=== PATIENT | male | born 1995 | race Caucasian/White ===

== ENCOUNTER 2021-03-17 00:20 | Emergency (ER) | payer BC, SELFPAY ==
--- NOTE | ~2021-03-17 | CT_ITS ---
EXAMINATION: CT abdomen pelvis w con DATE: 03/17/2021 01:58 INDICATION: Left-sided gluteal abscess versus cellulitis TECHNIQUE: Computed tomography (CT) of the abdomen and pelvis was performed with 100 mL Omnipaque-350 intravenous contrast. Automated exposure control and iterative reconstruction technique were employe d. The dose-length product was 802.44 mGy-cm. COMPARISON: None FINDINGS: Lung bases are clear. Heart size is normal. No pericardial or pleural effusion. Mild bilateral gyneco mastia. Liver, gallbladder, spleen, pancreas, bilateral adrenal glands and kidneys are normal. Bladde r is normal. There is mild scattered colonic diverticulosis without adjacent inflammatory change to s uggest diverticulitis. Small bowel and appendix are normal. Postoperative change of prior right ingui nal hernia mesh repair. No free intraperitoneal gas or fluid. No pathologically enlarged abdominal or pelvic lymphadenopathy. 2.1 x 1.3 x 0.9 cm rim-enhancing fluid collection with mild surrounding from trace stranding in the subcutaneous fat dorsal to the coccyx positioned slightly to the left of midl ine at the zahra of the gluteal cleft. The abscess appears separate from the underlying coccyx by a t hin intervening fat plane. No evident cortical erosion to suggest osteomyelitis. IMPRESSION: 1. 2.1 x 1.3 x 0.9 cm subcutaneous abscess along the gluteal cleft dorsal to the coccyx. Reviewed, dictated and finalized at location A. IMPRESSION: 1. 2.1 x 1.3 x 0.9 cm subcutaneous abscess along the gluteal cleft dorsal to th e coccyx.
[2021-03-17 00:23] VITALS: BP 153/96; PULSE 112; RESP 20; TEMP 36.9; O2SAT 95
[2021-03-17] MEDS: SODIUM CHLORIDE 0.9% IV 1,000 ML 999 ML IV CONT (01:15)
[2021-03-17] MEDS: CLINDAMYCIN 600 MG/D5W 50 ML 600 MG/50 ML PIGGYBACK 100 MG IVPB (01:18)
[2021-03-17 01:23] LABS: Basophils Percent Auto 0.3 % (0.2-1.2); Eosinophils Absolute Auto 0.1 K/mm3 (0-0.3); Hematocrit 47.1 % (42.0-52.0); Hemoglobin 16.7 g/dL (14.0-18.0); Immature Granulocyte Absolute 0.02 K/mm3 (0.00-0.031); Immature Granulocyte Percent A 0.2 % (0-0.5); Lymphocytes Absolute Auto 1.82 K/mm3 (0.9-3.2); Lymphocytes Percent Auto 15.3 % (18.3-44.2); Mean Corpuscular HGB Conc 35.5 g/dl (32-36); Mean Corpuscular Hemoglobin 31.8 pg (26-34); Mean Corpuscular Volume 89.7 fl (80-100); Mean Platelet Volume 11.6 fl (7.4-10.4); Monocytes Absolute Auto 1.2 K/mm3 (0.1-0.6); Monocytes Percent Auto 9.6 % (2.6-8.5); Neutrophils Absolute Auto 8.8 K/mm3 (1.3-6.7); Neutrophils Percent Auto 73.6 % (45.5-73.1); Platelet Count Result 216 k/mm3 (150-375); Red Blood Count 5.25 M/mm3 (4.6-6.20); Red Cell Distribution Width 12.4 % (11.5-14.5); White Blood Count 11.9 K/mm3 (4.5-10.0)
[2021-03-17 01:24] VITALS: BP 111/75; PULSE 87; RESP 12; O2SAT 95
--- NOTE | 2021-03-17 01:25 | PC.NURSE ---
Pt. states he does not want pain medication at this time.
[2021-03-17 01:42] LABS: Alanine Aminotransferase 31 U/L (4-50); Albumin Level 4.9 g/dL (3.5-5.1); Alkaline Phosphatase 61 U/L (38-126); Anion Gap 9 mmol/L (8-16); Aspartate Amino Transferase 35 U/L (17-59); Bilirubin,Total 0.5 mg/dL (0.2-1.3); Blood Urea Nitrogen 19 mg/dL (9-20); Calcium 9.7 mg/dL (8.4-10.2); Carbon Dioxide 26 mmol/L (22-30); Chloride 104 mmol/L (98-107); Estimated CRCL calculation 120 ml/min; Estimated Glomerular Filt Rate > 60; Glucose 110 mg/dL (75-110); Potassium 3.9 mmol/L (3.4-5.0); Sodium 139 mmol/L (137-145)
[2021-03-17 01:43] LABS: Lactic Acid Reflex 0.7 mmol/L (0.7-2.1)
--- NOTE | 2021-03-17 01:52 | ED.GENADULT ---
HPI - General Adult General Chief complaint: Back Pain/Injury Stated complaint: back pain Time Seen by Provider: 03/17/21 00:40 History of Present Illness HPI narrative: Patient is a 26-year-old gentleman who presents the emergency department with chief complaint of pain in the gluteal region. Patient states that he has noticed there is been some swelling and discomfort in the fold of his rectum. Patient states that there is swelling and tenderness to palpation. Patient states that has had no fevers reports that it hurts whenever he tries to sit down patient denies drainage denies fluctuance. Related Data Allergies Allergy/AdvReac Type Severity Reaction Status Date / Time ibuprofen Allergy Unknown Swelling Verified 03/17/21 01:23 of Lip/Tongue/Throat Review of Systems Review of Systems: Narrative: A 10 system review of systems was completed on the patient and is negative except for what is stated in the HPI. Nursing and ancillary documentation was reviewed. Exam Narrative: Exam Narrative: GENERAL: Well-appearing, well-nourished, and in no acute distress. HEAD: Normocephalic, atraumatic. EYES: PERRLA and EOMI. ENT: Nares clear, no rhinorrhea or epistaxis. Mucous membranes moist. NECK: Supple. CHEST: Clear to auscultation. No respiratory distress. HEART: Regular rate and rhythm. No murmur heard. Normal peripheral pulses. ABDOMEN: Soft, nontender, nondistended, normal active bowel sounds. : There is tenderness and erythema of the left gluteal fold EXTREMITIES: Normal range of motion. No edema. SKIN: Warm, dry, no rash. NEURO: No focal deficits. Alert and oriented x3. PSYCH: Normal mood and affect. Course Course Emergency Course: CT scan shows no evidence of cellulitis in the gluteal fold Vital Signs Vital signs: Vital Signs Temperature 36.9 C 03/17/21 00:23 Pulse Rate 112 H 03/17/21 00:23 Respiratory Rate 20 03/17/21 00:23 Blood Pressure 153/96 H 03/17/21 00:23 Pulse Oximetry 95 03/17/21 00:23 Temperature 36.9 C 03/17/21 00:23 Pulse Rate 87 03/17/21 01:24 Respiratory Rate 12 03/17/21 01:24 Blood Pressure 111/75 03/17/21 01:24 Pulse Oximetry 95 03/17/21 01:24 Medical Decision Making Vital Signs Vital Signs: Vital Signs Temperature 36.9 C 03/17/21 00:23 Pulse Rate 112 H 03/17/21 00:23 Respiratory Rate 20 03/17/21 00:23 Blood Pressure 153/96 H 03/17/21 00:23 Pulse Oximetry 95 03/17/21 00:23 Temperature 36.9 C 03/17/21 00:23 Pulse Rate 87 03/17/21 01:24 Respiratory Rate 12 03/17/21 01:24 Blood Pressure 111/75 03/17/21 01:24 Pulse Oximetry 95 03/17/21 01:24 Lab Data Result diagrams: 03/17/21 01:16 03/17/21 01:16 Labs: Lab Results 03/17/21 03/17/21 03/17/21 Range/Units 01:16 01:16 01:16 WBC 11.9 H (4.5-10.0) K/mm3 RBC 5.25 (4.6-6.20) M/mm3 Hgb 16.7 (14.0-18.0) g/dL Hct 47.1 (42.0-52.0) % MCV 89.7 (80-100) fl MCH 31.8 (26-34) pg MCHC 35.5 (32-36) g/dl RDW 12.4 (11.5-14.5) % Plt Count 216 (150-375) k/mm3 MPV 11.6 H (7.4-10.4) fl Immature Gran % (Auto) 0.2 (0-0.5) % Neut % (Auto) 73.6 H (45.5-73.1) % Lymph % (Auto) 15.3 L (18.3-44.2) % Pratt % (Auto) 9.6 H (2.6-8.5) % Eos % (Auto) 1.0 (0-4.4) % Baso % (Auto) 0.3 (0.2-1.2) % Lymph # (Auto) 1.82 (0.9-3.2) K/mm3 Pratt # (Auto) 1.2 H (0.1-0.6) K/mm3 Eos # (Auto) 0.1 (0-0.3) K/mm3 Baso # (Auto) 0.0 (0.0-0.1) K/mm3 Abs Immat Gran (auto) 0.02 (0.00-0.031) K/mm3 Absolute Neuts (auto) 8.8 H (1.3-6.7) K/mm3 Absolute Nucleated RBC 0.0 (0.0-0.012) K/mm3 Nucleated RBC % 0.0 (0.0-0.2) % Sodium 139 (137-145) mmol/L Potassium 3.9 (3.4-5.0) mmol/L Chloride 104 (98-107) mmol/L Carbon Dioxide 26 (22-30) mmol/L Anion Gap 9 (8-16) mmol/L BUN 19 (9-20) mg/dL Creatinine 0.90 (0.7-1.3) mg/dL Estim Creat Cl
--- NOTE | 2021-03-17 02:27 | PC.NURSE ---
Provided pt. with urinal
[2021-03-17 03:01] VITALS: BP 123/74; PULSE 74; RESP 19; O2SAT 99
[2021-03-17 03:01] LABS: Add Urine Microscopic? NO; Appearance Urine Clear (Clear); Bilirubin Urine Negative (Negative); Blood Urine Negative (Negative); Color Urine Straw (Yellow); Glucose Urine UA Negative (Negative); Ketones Urine Negative (Negative); Leukocyte Esterase Ur Negative LEU/UL (Negative); Nitrate Urine Negative (Negative); Protein Urine Negative (Negative); Specific Grav Ur 1.025 (1.001-1.035); Urobilinogen Urine Negative mg/dL (<2.0)
== END 2021-03-17 03:00 | disposition home or self-care (01) ==
PROVIDERS: Emergency Provider Emergency Medicine
DX: L03.317 Cellulitis of buttock (principal)
CPT/HCPCS: 36415; 74177; 80053; 81003; 83605; 85025; 96365; 99284; J7030; Q9967